=== PATIENT | female | born 1940 | race Caucasian/White ===

== ENCOUNTER 2016-10-15 23:57 | Emergency (ER) | payer MEDICARE, OTHER ==
[2016-10-16 00:43] LABS: BASO % 0.3 % (0.1-1.2); EOS # 0.2 10_X3_uL (0.0-0.4); EOS % 2.1 % (0.7-5.8); GRAN # 4.4 10_X3_uL (1.6-6.1); GRAN % 62.1 % (34.0-71.1); HEMATOCRIT 36.1 % (34-45); HEMOGLOBIN 10.5 g/dL (11.2-15.7); LYMPH # 1.7 10_X3_uL (1.2-3.7); LYMPH % 24.3 % (19.3-51.7); MEAN CORPUSCULAR HEMOGLOBIN 30.2 pg (27.0-33.0); MEAN CORPUSCULAR HGB CONC 29.1 g/dL (32.0-36.0); MEAN CORPUSCULAR VOLUME 103.7 fL (79-95); MONO # 0.8 10_X3_uL (0.2-0.9); MONO % 11.2 % (4.7-12.5); PLATELET COUNT 232 x10_3/uL (182-369); RED BLOOD COUNT 3.48 x10_6/uL (3.9-5.2); WHITE BLOOD COUNT 7.1 x10_3/uL (4.0-10.0)
[2016-10-16 00:49] LABS: ARTERIAL BLOOD GAS BASE EXCESS 15.3 mmol/L (-2.0-3.0); ARTERIAL BLOOD GAS pH 7.32 (7.35-7.45)
[2016-10-16 00:52] LABS: ARTERIAL BLOOD GAS PCO2 88.4 mmHg (32-45)
[2016-10-16 01:17] LABS: ALBUMIN 4.2 gm/dL (3.4-5.0); ALKALINE PHOSPHATASE 86 U/L (50-136); ALT/SGPT 12 U/L (3.5-33.9); AST/SGOT 25 U/L (7.04-26.96); BLOOD UREA NITROGEN 14 mg/dL (7-18); CALCIUM 9.4 mg/dL (8.7-10.7); CREATININE < 0.5 mg/dL (0.6-1.3); GLUCOSE,RANDOM 106 mg/dL (70-99); POTASSIUM 4.3 mmol/L (3.5-5.1); SODIUM 142 mmol/L (136-145); TOTAL PROTEIN 7.2 gm/dL (6.4-8.2)
[2016-10-16 01:27] LABS: BILIRUBIN,TOTAL < 0.15 mg/dL (0.0-1.0); CARBON DIOXIDE 41 mmol/L (21-32)
[2016-10-16 01:31] LABS: CREATINE KINASE 32 U/L (21-215)
[2016-10-16 02:13] LABS: ARTERIAL BLD GAS O2 SATURATION 92.9 % (94-98); ARTERIAL BLOOD GAS BASE EXCESS 16.7 mmol/L (-2.0-3.0); ARTERIAL BLOOD GAS HCO3 44.4 mmol/L (22-26); ARTERIAL BLOOD GAS pH 7.39 (7.35-7.45)
[2016-10-16 02:14] LABS: ARTERIAL BLOOD GAS PCO2 75.9 mmHg (32-45)
== END 2016-10-16 05:10 | disposition short-term general hospital (02) ==
LOC: ER 23:57
PROVIDERS: Internal Medicine
DX: J44.1 Chronic obstructive pulmonary disease with (acute) exacerbation (principal); R00.0 Tachycardia, unspecified; I10 Essential (primary) hypertension; G40.909 Epilepsy, unspecified, not intractable, without status epilepticus; E11.9 Type 2 diabetes mellitus without complications; Z95.1 Presence of aortocoronary bypass graft; Z88.2 Allergy status to sulfonamides
CPT/HCPCS: 36415; 36600; 71010; 80053; 82550; 82553; 82803; 83605; 83880; 85025; 87040; 93005; 94660; 94664; 96365; 96366; 96375; 99284; 99285-25; J2930

== ENCOUNTER 2016-11-28 22:42 | Emergency (ER) | payer MEDICARE, OTHER ==
[2016-11-28 23:34] LABS: ARTERIAL BLOOD GAS BASE EXCESS 11.1 mmol/L (-2.0-3.0); ARTERIAL BLOOD GAS HCO3 39.8 mmol/L (22-26); ARTERIAL BLOOD GAS pH 7.28 (7.35-7.45)
[2016-11-28 23:38] LABS: BASO % 0.2 % (0.1-1.2); EOS % 0.3 % (0.7-5.8); GRAN # 8.9 10_X3_uL (1.6-6.1); HEMATOCRIT 35.5 % (34-45); HEMOGLOBIN 10.5 g/dL (11.2-15.7); LYMPH # 1.1 10_X3_uL (1.2-3.7); LYMPH % 9.2 % (19.3-51.7); MEAN CORPUSCULAR HEMOGLOBIN 29.3 pg (27.0-33.0); MEAN CORPUSCULAR HGB CONC 29.6 g/dL (32.0-36.0); MEAN CORPUSCULAR VOLUME 99.2 fL (79-95); MEAN PLATELET VOLUME 8.9 fl (7.5-11.5); MONO # 1.4 10_X3_uL (0.2-0.9); MONO % 12.3 % (4.7-12.5); PLATELET COUNT 301 x10_3/uL (182-369); RED BLOOD COUNT 3.58 x10_6/uL (3.9-5.2); RED CELL DISTRIBUTION WIDTH 12.7 % (11.7-14.4); WHITE BLOOD COUNT 11.5 x10_3/uL (4.0-10.0)
[2016-11-28 23:41] LABS: ARTERIAL BLOOD GAS PCO2 86.9 mmHg (32-45)
[2016-11-28 23:50] LABS: ALBUMIN 3.8 gm/dL (3.4-5.0); ALKALINE PHOSPHATASE 96 U/L (50-136); ALT/SGPT 14 U/L (3.5-33.9); AST/SGOT 25 U/L (7.04-26.96); BLOOD UREA NITROGEN 9 mg/dL (7-18); CALCIUM 9.5 mg/dL (8.7-10.7); CARBON DIOXIDE 38 mmol/L (21-32); CREATINE KINASE 29 U/L (21-215); CREATININE < 0.5 mg/dL (0.6-1.3); GLUCOSE,RANDOM 119 mg/dL (70-99); POTASSIUM 3.9 mmol/L (3.5-5.1); SODIUM 143 mmol/L (136-145); TOTAL PROTEIN 6.8 gm/dL (6.4-8.2)
[2016-11-28 23:51] LABS: BILIRUBIN,TOTAL < 0.15 mg/dL (0.0-1.0)
== END 2016-11-29 02:18 | disposition short-term general hospital (02) ==
LOC: ER 22:42
PROVIDERS: Emergency Medicine
DX: J96.00 Acute respiratory failure, unspecified whether with hypoxia or hypercapnia (principal); J44.9 Chronic obstructive pulmonary disease, unspecified; I10 Essential (primary) hypertension; F17.210 Nicotine dependence, cigarettes, uncomplicated; Z79.899 Other long term (current) drug therapy; Z88.2 Allergy status to sulfonamides
CPT/HCPCS: 31500; 36415; 36600; 51702; 71010; 80053; 82550; 82553; 82803; 83880; 85025; 92950; 93005; 94002; 94664; 96365; 96375; 99070; 99285-25; 99291; J2250; J2930